=== PATIENT | female | born 1975 | race African-American/Black ===

== ENCOUNTER → 2021-05-03 00:05 | Outpatient (CLI) | payer BC, SELFPAY ==
[2021-05-03 15:57] LABS: SARS-CoV-2 RNA PCR Negative
== END ==
PROVIDERS: PCP Nurse Practitioner Family; Visit Provider Surgery Plastic and Reconstructive Surgery
DX: Z01.812 Encounter for preprocedural laboratory examination (principal); Z20.822 Contact with and (suspected) exposure to COVID-19
CPT/HCPCS: C9803; U0003; U0005

== ENCOUNTER 2021-05-06 00:03 | Day surgery (SDC) | payer BC, SELFPAY ==
[2021-04-28 15:56] VITALS: BMI 36.3
--- NOTE | 2021-05-05 13:35 | WPDANESEPPF ---
Anes - Initial Pre Proc Eval Procedure: Operation Date: 05/06/21 07:30 Proposed Procedures p Panniculectomy - Khang Darling MD Date/Time: 05/05/21 13:35 Surgeon: Khang Darling MD Pre Op Diagnosis: panniculitis Patient Data Age: 45 Gender: F Height: 1.63 m Weight: 96.2 kg Allergies Allergy/AdvReac Type Severity Reaction Status Date / Time iodine Allergy Unknown Verified 04/28/21 16:05 Home Medications Medication Instructions Recorded Confirmed Type hydrocodone 5 mg-acetaminophen 325 1 tablet PO Q6H PRN #15 tablet 04/14/21 04/28/21 Rx mg tablet ondansetron HCl 4 mg tablet 8 mg PO Q6H #30 tablet 04/14/21 04/28/21 Rx alprazolam 0.5 mg PO TID PRN 04/28/21 04/28/21 History Patient hx anesthesia problems: post op nausea/vomiting Family hx anesthesia problems: none PMFSH Past Medical History Medical History (Updated 04/14/21 @ 16:35 by Khang Darling MD) Hypokalemia Surgical History Surgical History History of delivery History of cholecystectomy History of gastric bypass History of hysterectomy Social History Social History Smoking status: Former smoker Second hand tobacco smoke exposure: No Additional smoking assessment comments: VERY SPORADIC/REMOTE SMOKING HX Alcohol intake: never Substance use: never Substance use type: does not use Gender identity (if verbalized by the patient): Female Spiritual care concerns: No Anes - Eval Final PreProcedure Day of Procedure 05/05/21 13:35 Informed Consent: The patient's anesthetic plan and its attendant risks and benefits were discussed with the patient/family/POA. Questions were solicited and answers provided to the satisfaction of the patient/family/POA.
[2021-05-06] VITALS (24 sets, daily range): BP systolic 93–168; BP diastolic 55–97; PULSE 61–87; RESP 12–18; TEMP 36.1–36.3; O2SAT 94–100
--- NOTE | 2021-05-06 06:49 | WPDHPUPDATE1 ---
History and Physical Update Update Date/Time: 05/06/21 06:49 History and Physical has been reviewed, including an updated exam of the patient. There are NO changes in the patient's condition. Risks, benefits, and alternatives have been discussed and questions answered. Patient agrees to proceed with procedure.
[2021-05-06] MEDS: LACTATED RINGERS 1,000 ML 30 ML IV CONT ×2 (06:53→09:46)
--- NOTE | 2021-05-06 07:07 | W.PM.PROC2 ---
Procedure Note - Detailed Date of Procedure 05/06/21 Pre-op Diagnosis Panniculitis Post-op Diagnosis same Procedure Performed Panniculectomy Surgeon Khang Darling MD Anesthesia general Findings Panniculus weight 2421 grams Description of Procedure Preoperatively the risks, benefits, alternatives were discussed in extensive detail. I want her to be very realistic about the risks involved as well as expectations. She stated that she is fine if she loses her umbilicus. We discussed this is a functional not a cosmetic procedure. Further this does not guarantee she will not have additional symptoms. All questions were answered to her satisfaction today. Consent obtained. She voiced an understanding. She would like proceed. She was marked in the preoperative holding area with her verification. She was taken to the operating room placed supine on the operating room table. Anesthesia provided by anesthesiology and prepped and draped in a standard sterile fashion. Surgical time-out was taken. A thorough abdominal examination was completed. Stab incisions were made 9 tumesced with a tumescent solution. Patient received TXA IV as well. 10 blade was used to make the lower incision. Dissection was continued and a wedge resection of the lower abdomen after verifying there be tension-free closure was completed. Copiously irrigated with saline solution and verified a strict hemostasis. I then closed over 19 Dayron drains bilateral which were sutured into place with 3-0 nylon. This was with 2-0 PDS followed by 3-0 strata fix and running subcuticular 4-0 monocryl. Dressings were placed. She was woken taken to the PACU without difficulty. All instrument sponge counts were correct the end of the case. Estimated Blood Loss 50 Drains Yes ( Bilateral Dayron 19) Packing No Pathology none sent Complications No immediate complications Condition stable Disposition PACU
[2021-05-06 07:13] LABS: Anion Gap 7 mmol/L (8-16); Blood Urea Nitrogen 15 mg/dL (7-17); Calcium 9.3 mg/dL (8.4-10.2); Carbon Dioxide 29 mmol/L (22-30); Chloride 103 mmol/L (98-107); Estimated CRCL calculation 99 ml/min; Estimated Glomerular Filt Rate > 60; Glucose 94 mg/dL (65-105); Sodium 139 mmol/L (137-145)
--- NOTE | 2021-05-06 07:19 | WPDANESEPPF ---
Anes - Initial Pre Proc Eval Procedure: Operation Date: 05/06/21 07:30 Proposed Procedures p Panniculectomy - Khang Darling MD Date/Time: 05/06/21 07:19 Surgeon: Khang Darling MD Pre Op Diagnosis: panniculitis Patient Data Age: 45 Gender: F Height: 1.63 m Weight: 98.8 kg Last Vital Signs Temp 96.9 F L 05/06/21 06:28 Pulse 61 05/06/21 06:28 Resp 18 05/06/21 06:28 BP 150/93 H 05/06/21 06:28 Pulse Ox 100 05/06/21 06:28 Allergies Allergy/AdvReac Type Severity Reaction Status Date / Time Iodinated Contrast Media Allergy Nausea and Verified 05/06/21 07:19 Vomiting Home Medications Medication Instructions Recorded Confirmed Type hydrocodone 5 mg-acetaminophen 325 1 tablet PO Q6H PRN #15 tablet 04/14/21 04/28/21 Rx mg tablet ondansetron HCl 4 mg tablet 8 mg PO Q6H #30 tablet 04/14/21 04/28/21 Rx alprazolam 0.5 mg PO TID PRN 04/28/21 04/28/21 History Laboratory Tests 05/06/21 05/06/21 06:44 06:44 Sodium 139 mmol/L mmol/L (137-145) Potassium 4.0 mmol/L mmol/L (3.4-5.0) Chloride 103 mmol/L mmol/L (98-107) Carbon Dioxide 29 mmol/L mmol/L (22-30) Anion Gap 7 mmol/L L mmol/L (8-16) BUN 15 mg/dL mg/dL (7-17) Creatinine 0.70 mg/dL mg/dL (0.7-1.0) Estim Creat Clear Calc 99 ml/min ml/min Estimated GFR > 60 (59 - ) Glucose 94 mg/dL mg/dL (65-105) Calcium 9.3 mg/dL mg/dL (8.4-10.2) Cotinine Pending Patient hx anesthesia problems: post op nausea/vomiting Family hx anesthesia problems: none PMFSH Past Medical History Medical History (Updated 04/14/21 @ 16:35 by Khang Darling MD) Hypokalemia Surgical History Surgical History History of delivery History of cholecystectomy History of gastric bypass History of hysterectomy Social History Social History Smoking status: Former smoker Second hand tobacco smoke exposure: No Additional smoking assessment comments: VERY SPORADIC/REMOTE SMOKING HX Alcohol intake: never Substance use: never Substance use type: does not use Living arrangements: with family Gender identity (if verbalized by the patient): Female Sexual Orientation (if Verbalized by the Patient): Straight or Heterosexual Spiritual care concerns: No Anes - Eval Final PreProcedure Day of Procedure 05/06/21 07:19 Patient weight: obese Heart: regular rate and rhythm Lungs: clear to auscultation Airway: Mallampati scale class II (upper front cipped tooth) Neurological: alert and oriented Last oral intake: >/= 8 hours ASA classification: II Emergent: no Anesthetic plan: proceed Anesthesia type and monitoring: general ETT and standard monitoring Informed Consent: The patient's anesthetic plan and its attendant risks and benefits were discussed with the patient/family/POA. Questions were solicited and answers provided to the satisfaction of the patient/family/POA.
[2021-05-06] MEDS: SCOPOLAMINE 1.5 MG PATCH TRANSDERM (07:23)
[2021-05-06] MEDS: TRANEXAMIC ACID 1,000MG/ISO100 1,000 MG/100 ML BAG 200 MG IVPB (07:34)
[2021-05-06] MEDS: ceFAZolin 2 GM/D5W 50 ML 2 GM/50 ML BAG IVPB (07:34)
[2021-05-06 08:18] LABS: Urine Cotinine NEGATIVE
[2021-05-06] MEDS: LACTATED RINGERS IRRIG 1,000 ML, LIDOCAINE HCL 1% LOCAL INJ 50 ML, EPINEPHrine HCL INJ ... INFILTRATE (08:30)
--- NOTE | 2021-05-06 12:46 | PC.NURSE ---
This patient, Jackie Walker, was received from PACU on 05/06/21 at 1246. Patient/family oriented to unit policies and routines
[2021-05-06] MEDS: LACTATED RINGERS 1,000 ML 125 ML IV CONT (13:10)
[2021-05-06] MEDS: carisoprodoL (*CRX) 350 MG TABLET PO ×2 (14:10→23:24)
[2021-05-06] MEDS: ENOXAPARIN 40 MG/0.4 ML SYRINGE SUB-Q (16:24)
[2021-05-06] MEDS: HYDROcodone/acetaminophen (*CRX) 5-325 MG TABLET 1 TAB PO (16:24)
[2021-05-06] MEDS: ONDANSETRON INJ 4 MG/2 ML VIAL IV PUSH (20:01)
[2021-05-06 21:31] LABS: Basophils Percent Auto 0.1 % (0.2-1.2); Hematocrit 37.6 % (37.0-47.0); Hemoglobin 12.2 g/dL (12.0-15.0); Immature Granulocyte Absolute 0.14 K/mm3 (0.00-0.031); Immature Granulocyte Percent A 0.6 % (0-0.5); Lymphocytes Absolute Auto 1.17 K/mm3 (0.9-3.2); Lymphocytes Percent Auto 4.9 % (18.3-44.2); Mean Corpuscular HGB Conc 32.4 g/dl (32-36); Mean Corpuscular Hemoglobin 29.2 pg (26-34); Mean Platelet Volume 11.3 fl (7.4-10.4); Monocytes Absolute Auto 1.3 K/mm3 (0.1-0.6); Monocytes Percent Auto 5.6 % (2.6-8.5); Neutrophils Absolute Auto 21.4 K/mm3 (1.3-6.7); Neutrophils Percent Auto 88.8 % (45.5-73.1); Platelet Count Result 257 k/mm3 (150-375); Red Blood Count 4.18 M/mm3 (4.2-5.4); Red Cell Distribution Width 13.3 % (11.5-14.5); White Blood Count 24.1 K/mm3 (4.5-10.0)
[2021-05-06 21:42] LABS: Anion Gap 10 mmol/L (8-16); Blood Urea Nitrogen 12 mg/dL (7-17); Calcium 9.1 mg/dL (8.4-10.2); Carbon Dioxide 25 mmol/L (22-30); Chloride 105 mmol/L (98-107); Estimated CRCL calculation 78 ml/min; Estimated Glomerular Filt Rate > 60; Glucose 221 mg/dL (65-105); Potassium 4.8 mmol/L (3.4-5.0); Sodium 140 mmol/L (137-145)
[2021-05-06] MEDS: DOCUSATE SODIUM 100 MG CAPSULE PO (23:23)
--- NOTE | 2021-05-07 03:16 | PC.NURSE ---
1939 Found patient lying supine on bathroom floor. Stated she had urinated on toilet and then got tired so sat down on floor. Second RN assist to return patient to toilet per her request, stated she needed to have bowel movement and proceeded to do so. Checked vitals of patient who while on toilet complained of sweating and being hot, BP 93/55. Stayed with patient in bathroom while she sat on toilet with her elbows on knees and her head in her hands for approximately 20 minutes. Repeatedly asked patient if she was ready to get off toilet and she said not yet repeatedly. Complained of nausea, administered zofran iv at 2000. Assisted patient to finish on toilet and pulled up her underwear and shorts. Patient requests going to sink to wash hands and then begins to lay on bathroom counter with her upper body. States she cannot turn to get on leny stedy and so wheelchair is brought into bathroom, patient is seated in wheelchair. Ammonia capsule used, patient able to transfer into bed. 2 liters O2 applied per N/C. VS 98/66, pulse 63, Pulse ox = 100%. Patient verbalizes she feels better, denies pain.
[2021-05-07 05:00] VITALS: BP 138/78; PULSE 103; RESP 17; TEMP 36.3; O2SAT 97
[2021-05-07 07:00] VITALS: BP 135/81; PULSE 98; RESP 16; TEMP 36.6; O2SAT 99
[2021-05-07] MEDS: DOCUSATE SODIUM 100 MG CAPSULE PO (07:11)
[2021-05-07] MEDS: carisoprodoL (*CRX) 350 MG TABLET PO ×2 (07:11→13:05)
--- NOTE | 2021-05-07 11:41 | WPDPN ---
Progress Note: A&P Assessment and Plan (1) Panniculitis: Code(s): M79.3 - Panniculitis, unspecified Status: Acute Assessment and Plan: Doing well. Will discharge home. Follow-up in 1 week. Keep us updated with drain outputs. Today we had a lengthy discussion of the care. Discussed what to monitor for. Discussed what is a medical emergency and when to dial 911 / proceed to ER. Explained otherwise to call with any questions or concerns at any time. She understands activity limitations. Voiced understanding. Will see her back. (2) History of gastric bypass: Code(s): Z98.84 - Bariatric surgery status Status: Acute Time Spent With Patient Time with patient: 25 - 35 minutes Subjective Date/time seen: 05/07/21 10:41 Last night episode of lightheadedness with ambulation. She attributes to the [place] as she had no concerns until taking norco. She actually had significant relief from [place]. She states that she is now doing well. No f/c. No n/v. No SOB. No Chest pain. No calf tenderness. Ambulating. Pain controlled. Tolerating diet. Review of Systems Review of Systems: All systems reviewed & are unremarkable except as noted in HPI and below Exam Narrative: Exam Narrative: Abdomen soft. Healing well. No signs of infection. No hematoma. No seroma. Drains are becoming serosangenous. No calf tenderness. Negative Homann's. Const: General: comfortable, no acute distress, alert and awake; No acute distress Orientation/consciousness: oriented to person HENMT: Head: normal to inspection Ears: external ears normal General nose exam: Normal external nose present Face and sinus: normal facial exam Eyes: General: appearance normal, both eyes and all related structures Periorbital: periorbital findings normal Eyelids: eyelids normal Conjunctivae: conjunctivae normal Neck: Neck: normal visual inspection Chest: Chest palpation & inspection: normal inspection of the chest Resp: Effort & Inspection: normal respiratory effort and able to speak in complete sentences GI: Inspection: normal to inspection Neuro: General: oriented to person Psych: Appearance: grossly normal Mental Status: mental status grossly normal Objective Data Vital Signs Vital Signs: Vital Signs - 24 hr 05/06/21 11:55 05/06/21 12:05 05/06/21 12:20 Temperature Pulse Rate 82 65 76 Respiratory Rate 16 18 16 Blood Pressure 142/85 H 150/87 H 144/89 H Pulse Oximetry 98 97 98 05/06/21 12:25 05/06/21 12:55 05/06/21 13:00 Temperature 36.1 C L Pulse Rate 68 75 Respiratory Rate 15 16 Blood Pressure 143/83 H 138/84 Pulse Oximetry 97 96 99 05/06/21 16:00 05/06/21 19:40 05/06/21 23:25 Temperature 36.1 C L 36.3 C L Pulse Rate 87 82 72 Respiratory Rate 18 16 Blood Pressure 143/76 H 93/55 L 132/67 Pulse Oximetry 99 100 05/07/21 05:00 05/07/21 07:00 Temperature 36.3 C L 36.6 C Pulse Rate 103 H 98 Respiratory Rate 17 16 Blood Pressure 138/78 135/81 Pulse Oximetry 97 99 Intake/Output Intake/Output: Intake & Output 05/04/21 05/05/21 05/06/21 05/07/21 23:59 23:59 23:59 23:59 Intake Total 400 Output Total 1975 345 Balance -1575 -345 Meds/Results Medications: Active Medications Generic Name Dose Route Start Last Admin Trade Name Freq PRN Reason Stop Dose Admin Hydrocodone Bitart/Acetaminophen 1 tab 05/06/21 12:33 05/06/21 16:24 Hydrocodone/Acetaminophen (*Crx) 5-325 Mg Tablet PO 1 tab Q6H PRN Administration Pain > 3 Alprazolam 0.5 mg 05/06/21 12:33 Alprazolam (*Crx) 0.5 Mg Tablet PO TID PRN Anxiety Carisoprodol 350 mg 05/06/21 14:30 05/07/21 07:11 Carisoprodol (*Crx) 350 Mg Tablet PO 350 mg Q6HR CAROLINE Administration Docusate Sodium 100 mg 05/06/21 21:00 05/07/21 07:11 Docusate Sodium 100 Mg Capsule PO 100 mg Q12HR CAROLINE Administration Enoxaparin Sodium 40 mg 05/06/21 16:00 05/06/21 16:24 Enoxaparin 40 Mg/0.
--- NOTE | 2021-05-07 11:48 | PM.DS ---
DS: Admitting Diagnosis Admitting Diagnosis Admitting Diagnosis: Panniculitis DS: Discharge Diagnosis Discharge Diagnosis (1) Panniculitis: Code(s): M79.3 - Panniculitis, unspecified Status: Acute (2) History of gastric bypass: Code(s): Z98.84 - Bariatric surgery status Status: Acute DS: Summary Hospital Course Hospital Course: Underwent panniculectomy uneventfully. Post-operatively had some lightheadedness with an episode of ambulation after [place]. Has done very well since. Will discharge home. Time Spent with Patient Time attestation: Total time spent providing and/or coordinating discharge services: Exam Narrative: Exam Narrative: Abdomen soft. Healing well. No signs of infection. No hematoma. No seroma. Drains are becoming serosangenous. No calf tenderness. Negative Homann's. Const: General: comfortable, no acute distress, alert and awake; No acute distress Orientation/consciousness: oriented to person HENMT: Head: normal to inspection Ears: external ears normal General nose exam: Normal external nose present Face and sinus: normal facial exam Eyes: General: appearance normal, both eyes and all related structures Periorbital: periorbital findings normal Eyelids: eyelids normal Conjunctivae: conjunctivae normal Neck: Neck: normal visual inspection Chest: Chest palpation & inspection: normal inspection of the chest Resp: Effort & Inspection: normal respiratory effort and able to speak in complete sentences GI: Inspection: normal to inspection Neuro: General: oriented to person Psych: Appearance: grossly normal Mental Status: mental status grossly normal DS: Data Data Completed and Pending Labs on day of discharge: Labs from last 24 hours 05/06/21 05/06/21 21:21 21:21 WBC 24.1 H RBC 4.18 L Hgb 12.2 Hct 37.6 MCV 90.0 MCH 29.2 MCHC 32.4 RDW 13.3 Plt Count 257 MPV 11.3 H Immature Gran % (Auto) 0.6 H Neut % (Auto) 88.8 H Lymph % (Auto) 4.9 L [place] % (Auto) 5.6 Eos % (Auto) 0.0 Baso % (Auto) 0.1 L Lymph # (Auto) 1.17 [place] # (Auto) 1.3 H Eos # (Auto) 0.0 Baso # (Auto) 0.0 Abs Immat Gran (auto) 0.14 H Absolute Neuts (auto) 21.4 H Absolute Nucleated RBC 0.0 Nucleated RBC % 0.0 Sodium 140 Potassium 4.8 Chloride 105 Carbon Dioxide 25 Anion Gap 10 BUN 12 Creatinine 0.90 Estim Creat Clear Calc 78 Estimated GFR > 60 Glucose 221 H Calcium 9.1 Discharge Plan Discharge Patient Disposition: Home, Self-Care Discharge Instructions: POST OPERATIVE DISCHARGE INSTRUCTIONS KHANG DARLING M.D. [facility] [address] [place] [address] [address] for 24 hours after anesthesia and while you are taking pain medication. Take all prescribed medication as directed Diet as tolerated. No lifting or activity that raises blood pressure for 48 hours. Regular walking / ambulation. No showering until directed to. Once you shower do not take pain medication before showering as the combination of medication and heat may cause you to feel dizzy or pass out. No pools or tubs until after drain removal. Call with any questions or concerns. Dressing Care: Wash with soap & water. Keep drain sites clean. If you have any questions or concerns, please call the office . If it is after hours you will be directed to the production quality analyst exchange. Shortness of breath, chest pain, or other medical emergency dial 911 / proceed to the Emergency Room. Remove the Scopolamine patch that was placed behind your ear in 72 hours or less. Wash your hands after touching. Patient Instructions: [facility] Drain [facility] (GEN) Stand Alone Forms: General Discharge Instructions Follow-up/Referrals: Khang Darling MD [Physician] - 1 Week Discharge Medications: New docusate sodium 100 mg Capsule 100 mg PO Q12HR Qty: 30 RF: 0 margaret
--- NOTE | 2021-05-07 13:22 | WPDANESPN ---
Anes - Prog Note Post-Op Date/Time: 05/07/21 13:22 Cardiovascular status: normal Respiratory status: normal Airway patency: baseline Mental status: baseline Post-Op hydration status: normal Vital Signs: Last Vital Signs Temp 36.6 C 05/07/21 07:00 Pulse 98 05/07/21 07:00 Resp 16 05/07/21 07:00 BP 135/81 05/07/21 07:00 Pulse Ox 99 05/07/21 07:00 Pain Score (VAS): 2 I/O: Intake & Output 05/06/21 05/07/21 05/07/21 23:59 07:59 15:59 Output Total 1930 345 Balance -1930 -345 Laboratory Tests 05/06/21 21:21 05/06/21 21:21 05/06/21 05/06/21 21:21 21:21 WBC 24.1 H RBC 4.18 L Hgb 12.2 Hct 37.6 MCV 90.0 MCH 29.2 MCHC 32.4 RDW 13.3 Plt Count 257 MPV 11.3 H Immature Gran % (Auto) 0.6 H Neut % (Auto) 88.8 H Lymph % (Auto) 4.9 L [place] % (Auto) 5.6 Eos % (Auto) 0.0 Baso % (Auto) 0.1 L Lymph # (Auto) 1.17 [place] # (Auto) 1.3 H Eos # (Auto) 0.0 Baso # (Auto) 0.0 Abs Immat Gran (auto) 0.14 H Absolute Neuts (auto) 21.4 H Absolute Nucleated RBC 0.0 Nucleated RBC % 0.0 Sodium 140 Potassium 4.8 Chloride 105 Carbon Dioxide 25 Anion Gap 10 BUN 12 Creatinine 0.90 Estim Creat Clear Calc 78 Estimated GFR > 60 Glucose 221 H Calcium 9.1 Post-procedural complaints: none Patient Feedback: Patient satisfied with anesthetic care.
== END 2021-05-07 13:40 | disposition home or self-care (01) ==
LOC: ANHSURGERY 09:21 → ANHOB2 15:34
PROVIDERS: Anesthesiology; PCP Nurse Practitioner Family; Visit Provider Surgery Plastic and Reconstructive Surgery
PROC: 0JB80ZZ Excision of Abdomen Subcutaneous Tissue and Fascia, Open Approach (ICD-10-PCS; CPT 15830; principal; 2021-05-06 07:30)
DX: M79.3 Panniculitis, unspecified (principal); Z87.891 Personal history of nicotine dependence; Z98.84 Bariatric surgery status; Z79.899 Other long term (current) drug therapy
CPT/HCPCS: 15830; 80048; 80307; 85025; 94640; 99199; A9270; J0171; J0690; J1100; J1170; J1650; J2250; J2405; J2704; J3010; J7120